=== PATIENT | male | born 1975 | race Caucasian/White ===

== ENCOUNTER 2021-06-23 09:01 | Emergency (ER) | payer MEDICAID, SELFPAY ==
[2021-06-23 09:17] VITALS: BP 142/101; PULSE 101; RESP 18; TEMP 36.6; O2SAT 97; BMI 33.4
--- NOTE | 2021-06-23 11:53 | ED_ITS ---
HPI - Extremity Problem General Chief complaint: Extremity Problem Stated complaint: R knee pain Time Seen by Provider: 06/23/21 11:53 Source: patient Mode of arrival: ambulatory Limitations: language barrier History of Present Illness HPI Narrative: History obtained with french translator. 12 days ago he had swelling and erythema of his ankle for 8 days, then developed knee pain. He occaisionally gets redness and swelling to the knee. Patient has a history of gout. He was taking indomethicin but does not have a doctor. Patient states that he has not been drinking for 2 months. Patient states he knows he needs a doctor. MD Complaint: joint swelling and joint pain Onset (ago): week(s) Pain Consistency: constant Location: right and knee Quality: sharp Related Data Previous Rx's Medication Instructions Recorded colchicine 0.6 mg tablet (Colcrys) 0.6 mg PO DAILY #20 tab 06/23/21 indomethacin 50 mg capsule 50 mg PO TID #30 cap 06/23/21 Allergies Allergy/AdvReac Type Severity Reaction Status Date / Time No Known Allergies Allergy Verified 06/23/21 09:20 [No Known Allergies*] Review of Systems Constitutional: Constitutional: Reports no additional constitutional complaints Eyes: Eyes: Reports no additional eye complaints ENT: Denies dizziness Cardiovascular: Cardiovascular: Reports no additional cardiovascular complaints Respiratory: Respiratory: Reports as per HPI Gastrointestinal: Gastrointestinal: Reports no additional gastrointestinal complaints Musculoskeletal: Musculoskeletal: Reports no additional musculoskeletal complaints Integumentary/Breasts: Skin/Breast: Denies rash Neurologic: Reports system reviewed and no additional complaints, except as documented, Denies dizziness and Denies Sensory deficit (Neuro) Psychiatric: Psychiatric: Denies anxiety [facility] Past Medical History Medical History No known health problems Social History Social History Advance Directives: No Physical Exam Vital Signs: Vital Signs: Last Vital Signs Temp 97.8 F 06/23/21 09:17 Pulse 101 H 06/23/21 09:17 Resp 18 06/23/21 09:17 BP 142/101 H 06/23/21 09:17 Pulse Ox 97 06/23/21 09:17 BMI result Body Mass Index 33.4 Const: General: healthy appearing Nutritional Appearance: obese Orientation/consciousness: oriented to person and patient oriented x3 Limitations: no limitations HEENT: Head: Yes normal to inspection Ears: external ears normal General nose exam: Normal external nose present Mouth: Normal oral and palatal mucosa present and oropharynx normal Throat: Yes posterior oropharynx normal Eyes: General: appearance normal, both eyes and all related structures Neck: Other: supple Neck: Yes normal visual inspection Chest: Chest palpation & inspection: normal inspection of the chest Resp: Auscultation: clear to auscultation bilaterally Cardio: Jugular venous distension: no JVD Rate: regular rate Rhythm: regular rhythm Heart sounds: S1 normal heart sound present and S2 normal heart sound present GI: Inspection: Yes normal to inspection Palpation (GI): Soft to palpation, nontender and No hepatosplenomegaly present Auscultation: normal bowel sounds : General: Yes no CVA tenderness Back/Spine/Pelvis: Back: no CVA tenderness Skin: General skin exam: no rashes or lesions noted Neuro: General: oriented to person and patient oriented x3 Cranial nerves: Yes CN's II-XII intact bilaterally Motor exam (neuro): 5/5 motor strength present throughout Sensory Exam: No Sensory deficit (Neuro) Extrem: Other: right knee no erythema, positive warmth, positive effusion Psych: Appearance: grossly normal Course Reevaluation(s) Reevaluation #1: patient with a 12 days of gouty flair that started in the ankle and now has traveled to the knee. Will start on Colcrys and indomethicin Time: 12:11 Discharge Plan Discharge Clinical Impression: Gout attack Patient Disposition: Home, Self-Care Instructions: Gout (ED) Prescriptions: New indomethacin 50 mg capsule 50 mg PO TID Qty: 30 0RF Rx Instructions: administer with food or milk colchicine [Colcrys] 0.6 mg tablet 0.6 mg PO DAILY Qty: 20 0RF Rx Instructions: 2 tablets day one then one tablet daily Referrals: Physician,None [Primary Care Provider] - 1 week Stand Alone Forms: Work/School Release
== END 2021-06-23 12:26 | disposition home or self-care (01) ==
PROVIDERS: Emergency Provider Emergency Medicine
DX: M10.9 Gout, unspecified (principal); M25.561 Pain in right knee
CPT/HCPCS: 99283

== ENCOUNTER 2022-01-01 07:49 | Outpatient (REF) | payer OTHER, SELFPAY ==
[2022-01-01 08:04] LABS: MANUAL DIFF FLAG NO
[2022-01-01 08:26] LABS: Basophils Percent Auto 0.6 % (0-2); Eosinophils Absolute Auto 0.2 X10*3/uL (0.0-0.4); Eosinophils Percent Auto 4.5 % (0-4); Hematocrit 44.7 % (42.0-52.0); Hemoglobin 15.1 g/dl (14.0-18.0); Imm Gran Abs Auto 0.02 X10*3/uL (0.00-0.03); Imm Gran Pct Auto 0.4 % (0.0-0.4); Lymphocytes Absolute Auto 2.1 X10*3/uL (1.2-4.9); Lymphocytes Percent Auto 39.9 % (20-40); Mean Corpuscular HGB Conc 33.8 g/dl (31.0-36.0); Mean Corpuscular Hemoglobin 29.3 pg (27.0-33.0); Mean Corpuscular Volume 86.6 fL (80.0-98.0); Mean Platelet Volume 10.6 fL (9.4-12.4); Monocytes Absolute Auto 0.6 X10*3/uL (0.1-1.2); Monocytes Percent Auto 11.4 % (2-11); Neutrophils Absolute Auto 2.3 x10*3/uL (2.0-8.3); Neutrophils Percent Auto 43.2 % (45-73); Platelet Count 221 X10*3/uL (160-400); Red Blood Count 5.16 X10*6/uL (4.60-5.80); Red Cell Distribution Width 12.4 % (11.0-16.0); White Blood Count 5.4 X10*3/uL (4.8-10.8)
[2022-01-01 09:11] LABS: Alanine Aminotransferase 30 U/L (0-40); Albumin Level 4.4 g/dL (3.5-5.0); Alkaline Phosphatase 55 U/L (39-117); Anion Gap 13 (12-20); Aspartate Amino Transferase 22 U/L (5-37); Bilirubin Total 0.6 mg/dL (0.0-1.0); Blood Urea Nitrogen 17 mg/dL (9-16); Calcium 9.3 mg/dL (8.4-10.2); Carbon Dioxide 28 mmol/L (22-29); Chloride 104 mmol/L (96-108); Cholesterol 167 mg/dL; Estimated Glomerular Filt Rate > 60; Glucose Fasting 102 mg/dL (60-99); HDL Cholesterol 33 mg/dL; LDL Cholesterol Calculated 103 mg/dl; Potassium 4.6 mmol/L (3.3-5.1); Sodium 140 mmol/L (135-145); Total Protein 7.9 g/dL (6.5-8.0); Triglycerides 159 mg/dL; Uric Acid 8.5 mg/dL (3.4-7.0)
[2022-01-01 09:32] LABS: Thyroid Stimulating Hormone 1.64 uIU/mL (0.32-4.0)
== END 2022-01-01 07:50 | disposition home or self-care (01) ==
LOC: HO.LAB 07:49
PROVIDERS: Visit Provider Internal Medicine
DX: Z00.00 Encounter for general adult medical examination without abnormal findings (principal); M10.9 Gout, unspecified; E66.9 Obesity, unspecified
CPT/HCPCS: 36415; 80053; 80061; 84443; 84550; 85025

== ENCOUNTER 2022-12-18 11:41 | Emergency (ER) | payer OTHER, SELFPAY ==
[2022-12-18 11:45] VITALS: BP 143/89; PULSE 73; RESP 16; TEMP 37; O2SAT 100; BMI 35.0
--- NOTE | 2022-12-18 11:49 | ED_ITS ---
HPI - General Adult General Chief complaint: Skin/Abscess/Foreign Body Stated complaint: abscess on face Time Seen by Provider: 12/18/22 13:00 Source: patient and obstetrics gyn Mode of arrival: ambulatory Limitations: language barrier History of Present Illness HPI narrative: 47 yo male here with swelling/redness/pain to right side of face x 1 week with boil . No fevers/chills. Related Data Previous Rx's Medication Instructions Recorded colchicine (gout) 0.6 mg tablet 0.6 mg PO DAILY PRN gout 10 days 12/27/21 #20 tabs allopurinol 100 mg tablet 100 mg PO DAILY 90 days #90 tabs 11/02/22 lisinopril 10 mg tablet 10 mg PO DAILY 90 days #90 tabs 11/02/22 doxycycline monohydrate 100 mg 100 mg PO BID #20 tabs 12/18/22 tablet Allergies Allergy/AdvReac Type Severity Reaction Status Date / Time No Known Allergies Allergy Verified 12/18/22 11:45 [No Known Allergies*] Review of Systems 2 Review of Systems: Yes all other systems are reviewed and are negative Constitutional: Constitutional: Reports no additional constitutional complaints, Denies body ache(s), Denies chills, Denies fever(s), Denies headache(s) and Denies weakness Eyes: Eyes: Reports no additional eye complaints and Denies change in vision ENT: Reports system reviewed and no additional complaints, except as documented, Denies dizziness, Denies headache(s), Denies nasal congestion, Denies nasal discharge and Denies neck pain Cardiovascular: Cardiovascular: Reports no additional cardiovascular complaints, Denies chest pain, Denies leg edema and Denies dyspnea Respiratory: Respiratory: Reports no additional respiratory complaints, Denies cough and Denies dyspnea Gastrointestinal: Gastrointestinal: Reports no additional gastrointestinal complaints, Denies abdominal pain, Denies diarrhea, Denies nausea and Denies vomiting Genitourinary: Genitourinary: Denies urinary incontinence Musculoskeletal: Musculoskeletal: Reports no additional musculoskeletal complaints, Denies back pain, Denies arthralgias, Denies joint swelling, Denies neck pain, Denies numbness and Denies tingling Integumentary/Breasts: Skin/Breast: Reports system reviewed and no additional complaints, except as docu, Reports furuncle, Reports swelling, Reports erythema and Denies rash Neurologic: Reports system reviewed and no additional complaints, except as documented, Denies Abnormal speech present, Denies dizziness, Denies headache(s), Denies numbness, Denies tingling and Denies weakness PMFSH Past Medical History Attestation statement: The following information was validated with the patient. Source: old records reviewed and nursing notes reviewed Surgical History No pertinent past surgical history Family History Family History Mother Diabetes Father AA (alcohol abuse) Substance use disorder Social History Social History Housing: House Alcohol intake: current Alcohol intake frequency: holidays/special occasions only Alcohol type: beer Patient Tobacco Use Status: Former Tobacco user Tobacco use type: Cigarette e-Cigarette/Vaping Use: Never Used Second Hand Smoke Exposure: No Advance Directives: No Advance Directives Information Provided: No service: No Current occupational status: employed Current occupational exposures/hazards: No Cognitive needs: Yes Hearing needs: No Vision needs: No Physical Exam ED Vital Signs: Vital Signs - 24 hr 12/18/22 11:45 Temperature 98.6 F Pulse Rate 73 Respiratory Rate 16 Blood Pressure 143/89 H Pulse Oximetry 100 Oxygen Delivery Method Room Air BMI result Body Mass Index 35.0 Const General: cooperative, healthy appearing, comfortable and no acute distress Orientation/consciousness: patient oriented x3 Limitations: no limitations HENMT Head: Yes normal to inspection Head images: 2 1. +medium sized abscess with pointing/fluctuanc Ears: hearing grossly normal bilaterally General nose exam: Normal external nose present Face and sinus: Yes normal facial exam Mouth: Normal oral and palatal mucosa present Throat: Yes posterior oropharynx normal Eyes General: appearance normal, both eyes and all related structures Pupils: Equal, round and reactive pupils present Neck Neck: Yes normal visual inspection Chest Chest palpation & inspection: normal inspection of the chest Resp Effort & Inspection: normal respiratory effort Auscultation: clear to auscultation bilaterally Cardio Rate: regular rate Rhythm: regular rhythm Peripheral pulses: Peripheral pulses 2+ throughout GI Inspection: Yes normal to inspection Palpation (GI): Soft to palpation and nontender Auscultation: normal bowel sounds Back/Spine/Pelvis Thoracic/Lumbar Spine: thoracic and lumbar spine normal to inspection Skin General skin exam: no rashes or lesions noted Neuro General: patient oriented x3, no focal motor deficits and normal sensation to monofilament Cranial nerves: Yes Equal, round and reactive pupils present Cognition (Neuro): normal cognition Speech: No Abnormal speech present Gait exam (Neuro): Normal gait present Motor exam (neuro): 5/5 motor strength present throughout Extrem General: Yes normal to inspection Course Course Course Narrative: RME: 47 yold male presents to the ED for superfical facial absscess with opening with slight drainage. patient denies troubling swalloing. to be evaluated in [facility] Medications Administered Discontinued Medications Generic Name Dose Route Start Last Admin Trade Name Freq PRN Reason Stop Dose Admin Lidocaine HCl 2 ml 12/18/22 13:12 12/18/22 13:29 Lidocaine Hcl 1 % Mpf 2 Ml Vial INFILTRATI 12/18/22 13:13 2 ml ONCE ONE Administration Procedures Abscess I/D Site: face Side (if applicable): right Local Anesthetic: lidocaine 1% Amount of anesthesia used (mL): 1 Technique: incised with blade Sent for culture/gram staining?: No Irrigation: No Packing used?: none Medical Decision Making Medical Decision Making MDM Narrative: 47 yo male here with swelling/redness/pain to right side of face x 1 week with boil . No fevers/chills. +abscess seen See procedure note Then dc home with oral antibiotics Differential Diagnosis Differential Diagnoses: The differential diagnosis associated with the presentation includes abscess Prescription Management I considered prescription management with: Antibiotic Discharge Plan Discharge Clinical Impression: Abscess of skin or subcutaneous tissue Patient Disposition: Home, Self-Care Instructions: Abscess (ED) Additional Instructions: Leave dressing in place. Remove it tomorrow. Warm compresses 3-4 times daily for the next few days. Deje el vendaje [place]. Ret?relo ma?lise. Compresas tibias 3-4 veces al d?a marli los pr?ximos d?as. Prescriptions: New doxycycline monohydrate 100 mg tablet 100 mg PO BID Qty: 20 0RF No Action allopurinol 100 mg tablet 100 mg PO DAILY 90 Days Qty: 90 1RF lisinopril 10 mg tablet 10 mg PO DAILY 90 Days Qty: 90 1RF colchicine (gout) 0.6 mg tablet 0.6 mg PO DAILY PRN (Reason: gout) 10 Days Qty: 20 1RF Referrals: Lise Key MD [Primary Care Provider] - 1 week Interventions: ED Discharge Assessment Last Done: 12/18/22 13:37 Discharge Date/Time: 12/18/22 13:38 Print Language: Mosotho
[2022-12-18] MEDS: Lidocaine HCl 1 % MPF 2 ML VIAL INFILTRATI (13:29)
== END 2022-12-18 13:38 | disposition home or self-care (01) ==
PROVIDERS: Emergency Provider Emergency Medicine; PCP Internal Medicine
DX: L02.01 Cutaneous abscess of face (principal)
CPT/HCPCS: 99282